=== PATIENT | male | born 1990 | race African-American/Black ===

== ENCOUNTER 2018-10-04 23:09 | Emergency (ER) | payer MEDICAID ==
[~2018-10-04] VITALS: Ht 170.2 cm; Wt 73.0 kg
[2018-10-05] MEDS ORDERED: ONDANSETRON HCL 4MG/2ML INJ IV STA (00:11)
[2018-10-05] MEDS ORDERED: SODIUM CHLORIDE 0.9% 1,000 ML IV ONE ×2 (00:11→02:02)
[2018-10-05] MEDS ORDERED: KETOROLAC 30MG/ML VIAL IV STA (00:11)
[2018-10-05 00:25] LABS: BASOPHILS % 0.2 % (0.0-2.0); EOSINOPHILS % 0.4 % (0.0-5.0); HEMATOCRIT. 41.6 % (42.0-52.0); HEMOGLOBIN. 14.2 g/dL (14.0-18.0); LYMPHOCYTES % 19.2 % (20.0-50.0); MEAN CORPUSCULAR HEMOGLOBIN 32.9 pg (28.0-32.0); MEAN CORPUSCULAR VOLUME 96.7 fL (80.0-94.0); MEAN PLATELET VOLUME 8.1 fl (7.4-10.4); MONOCYTES % 5.9 % (2.0-8.0); NEUTROPHILS % 74.3 % (40.0-76.0); PLATELET 175 x1000/uL (130-400); RED CELL DISTRIBUTION WIDTH 13.8 % (11.6-14.6)
[2018-10-05 00:27] LABS: CHLORIDE 106 mEq/L (98-107)
[2018-10-05 00:56] LABS: CLARITY URINE CLOUDY (CLEAR); COLOR URINE DARK YELLOW (YELLOW); KETONES URINE 1+ (NEGATIVE); LEUKOCYTE ESTERASE URINE 1+ (NEGATIVE); NITRITE URINE NEGATIVE (NEGATIVE); OCCULT BLOOD URINE 3+ (NEGATIVE); PROTEIN URINE 1+ (NEGATIVE); SPECIFIC GRAVITY URINE 1.035 (1.005-1.030)
[2018-10-05] MEDS ORDERED: MORPHINE SULFATE 4 MG/ML CPJ (NOT FOR IM USE) IV ONE (02:15)
[2018-10-05 03:16] VITALS: BP 112/67
== END 2018-10-05 03:17 | disposition home or self-care (01) ==
LOC: ER 23:09
DX: N23 Unspecified renal colic (principal); R31.9 Hematuria, unspecified
CPT/HCPCS: 36415; 74176; 80053; 81003; 83690; 85025; 96361; 96374; 96375; 99284; J1885; J2270; J2405; J7030; Z7610